=== PATIENT | male | born 2000 | race Caucasian/White ===

== ENCOUNTER 2018-01-17 15:54 | Emergency (ER) | payer OTHER ==
[~2018-01-17] VITALS: Ht 172.7 cm; Wt 79.4 kg
[~2018-01-17 15:54] MED LIST: ACETAMINOPHEN-1 EAC1 PO; APAP/CODEINE ELI5 M1 PO; CIPRO500 MG PO; IBUPROFEN 800800 M1 PO; MEDROLDOSEPACK PO; NAPROSYN500 MG PO; NOHOMEMEDICATIONS; PROAIR HFA8.5 GM INH; ROBAXIN 750 MG750 M1 PO; XANAX 0.5 MG0.5 MG PO; ZOFRAN ODT4 MG PO; ZPAK PO
[2018-01-17] MEDS ORDERED: VIRTUSSIN AC L118 ML PO (16:08)
[2018-01-17] MEDS ORDERED: ZPAK PO (16:08)
[2018-01-17] MEDS ORDERED: PREDNISONE 5 MG5 MG PO (16:08)
[2018-01-17 16:14] VITALS: BP 129/90
== END 2018-01-17 16:15 | disposition home or self-care (01) ==
LOC: M.ERS 15:54
DX: J02.9 Acute pharyngitis, unspecified (principal)

== ENCOUNTER 2018-04-20 00:24 | Emergency (ER) | payer OTHER ==
[~2018-04-20] VITALS: Ht 177.8 cm; Wt 79.4 kg
[~2018-04-20 00:24] MED LIST changes: +PREDNISONE 5 MG5 MG PO; +VIRTUSSIN AC L118 ML PO
[2018-04-20] MEDS ORDERED: VISTARIL 25 MG25 M1 PO (00:32)
[2018-04-20] MEDS ORDERED: PROZAC10 MG PO (00:34)
[2018-04-20 01:01] LABS: ABSOLUTE BASOPHILS 0.1 thou/uL (0.0-0.2); ABSOLUTE LYMPHOCYTES 2.9 thou/uL (0.8-5.3); ABSOLUTE MONOCYTES 0.5 thou/uL (0.0-1.2); ABSOLUTE NEUTROPHILS 7.1 thou/uL (1.6-8.1); BASOPHILS 0.6 %; EOSINOPHILS 0.2 %; HEMATOCRIT 41.9 % (42.0-52.0); HEMOGLOBIN 14.8 gm/dL (14.0-18.0); LYMPHOCYTES 27.2 %; MCH 30.1 pg (26.0-34.0); MCHC 35.3 g/dL (28.0-37.0); MCV 85.3 fL (80.0-100.0); MONOCYTES 4.7 %; MPV 9.2 fl. (7.2-11.1); NUCLEATED RBCS 0 /100WBC; PLATELET COUNT* 218 thou/uL (150-400); POLYS 67.3 %; RBC 4.91 mil/uL (4.50-6.00); RDW-CV 13.4 % (10.5-14.5); WBC 10.6 thou/uL (4.0-11.0)
[2018-04-20 01:05] LABS: CALCIUM 9.3 mg/dL (8.5-10.1); CREATININE 0.9 mg/dL (0.6-1.3); POTASSIUM 3.4 mmol/L (3.5-5.1)
[2018-04-20] MEDS ORDERED: AMOXICILLIN875 MG PO (02:55)
[2018-04-20] MEDS ORDERED: ZPAK PO (03:26)
[2018-04-20 03:36] VITALS: BP 111/66
== END 2018-04-20 03:42 | disposition home or self-care (01) ==
LOC: M.ERS 00:24
PROVIDERS: Personal Emergency Response Attendant
DX: J03.90 Acute tonsillitis, unspecified (principal); F41.9 Anxiety disorder, unspecified

== ENCOUNTER 2018-05-09 17:03 | Emergency (ER) | payer OTHER ==
[~2018-05-09] VITALS: Ht 172.7 cm; Wt 77.1 kg
[~2018-05-09 17:03] MED LIST changes: +AMOXICILLIN875 MG PO; +PROZAC10 MG PO; +VISTARIL 25 MG25 M1 PO
[2018-05-09] MEDS ORDERED: CLONAZEPAM 1 MG1 M1 PO (17:14)
[2018-05-09] MEDS ORDERED: VENTOLIN HFA 1818 GM INH (17:47)
[2018-05-09 17:53] VITALS: BP 136/73
--- NOTE | 2018-05-10 11:01 | EKG ---
[place] [address] ELECTROCARDIOGRAM REPORT Name: SANA MAY [id number] Admission: 05/09/18 Attend Phys: Discharge: 05/09/18 Date of : [birth year] Report #: [id number] THIS REPORT FOR: //name// [facility] ED Test Date: 2018-05-09 Test Time: 17:07:31 Pat Name: SANA MAY Department: Room: Gender: M Olive Pitter: KAVYA : 2000 Requested By: Jose Maria Dorsey Order Number: [id number] MD: Keaton Michaels Measurements Intervals [place] Rate: 55 P: 24 FL: 160 QRS: 45 QRSD: 101 T: 33 QT: 394 QTc: 377 Interpretive Statements Sinus rhythm ST elev, probable normal early repol pattern Compared to ECG 09/23/2016 21:50:14 ST (T wave) deviation now present Electronically Signed On 05-10-2018 11:00:53 CDT by Keaton Michaels [email or web address] <ELECTRONICALLY SIGNED> By: Gayathri Michaels MD, [facility] 05/10/18 1100 1707 1707 Gayathri Michaels MD, [facility] /EPI
== END 2018-05-09 17:53 | disposition home or self-care (01) ==
LOC: M.ERS 17:03
DX: J40 Bronchitis, not specified as acute or chronic (principal); M94.0 Chondrocostal junction syndrome [Tietze]

== ENCOUNTER 2019-01-21 16:38 | Emergency (ER) | payer OTHER ==
[~2019-01-21] VITALS: Ht 177.8 cm; Wt 79.4 kg
[~2019-01-21 16:38] MED LIST changes: +CLONAZEPAM 1 MG1 M1 PO; +VENTOLIN HFA 1818 GM INH
[2019-01-21] MEDS ORDERED: CLONAZEPAM 0.50.5 M1 PO (16:48)
[2019-01-21 17:16] LABS: ABSOLUTE BASOPHILS 0.1 thou/uL (0.0-0.2); ABSOLUTE LYMPHOCYTES 2.8 thou/uL (0.8-5.3); ABSOLUTE MONOCYTES 0.3 thou/uL (0.0-1.2); ABSOLUTE NEUTROPHILS 4.7 thou/uL (1.6-8.1); BASOPHILS 1.2 %; EOSINOPHILS 0.4 %; HEMATOCRIT 41.6 % (42.0-52.0); HEMOGLOBIN 14.4 gm/dL (14.0-18.0); LYMPHOCYTES 35.3 %; MCH 29.7 pg (26.0-34.0); MCHC 34.6 g/dL (28.0-37.0); MCV 85.8 fL (80.0-100.0); MONOCYTES 3.5 %; MPV 8.6 fl. (7.2-11.1); NUCLEATED RBCS 0 /100WBC; PLATELET COUNT* 222 thou/uL (150-400); POLYS 59.6 %; RBC 4.85 mil/uL (4.50-6.00); RDW-CV 13.2 % (10.5-14.5); WBC 7.9 thou/uL (4.0-11.0)
[2019-01-21 17:27] LABS: ANION GAP 8 mmol/L (7-16); BUN 22 mg/dL (7-18); CALCIUM 9.3 mg/dL (8.5-10.1); CHLORIDE 105 mmol/L (98-107); CO2 28 mmol/L (21-32); GLUCOSE 107 mg/dL (70-99); POTASSIUM 3.5 mmol/L (3.5-5.1); SODIUM 141 mmol/L (136-145)
[2019-01-21 17:40] LABS: ALBUMIN 4.2 g/dL (3.4-5.0); ALKALINE PHOSPHATASE 78 U/L (46-116); CK-MB MASS 0.5 ng/mL (<0.5-3.6); SGOT 14 U/L (15-37); SGPT 21 U/L (30-65); TOTAL BILIRUBIN 0.4 mg/dL (<0.1-1.0); TOTAL PROTEIN 7.5 g/dL (6.4-8.2); TROPONIN-I LEVEL <0.06 ng/mL (<0.06)
[2019-01-21 17:52] LABS: APTT 31.1 Seconds (25.0-31.3); INR 1.1; PROTIME 11.3 Seconds (9.20-11.50)
[2019-01-21] MEDS ORDERED: FLEXERIL PO (18:49)
[2019-01-21 19:12] VITALS: BP 118/72
--- NOTE | 2019-01-22 11:12 | EKG ---
[place] [address] ELECTROCARDIOGRAM REPORT Name: SANA MAY [id number] Admission: 01/21/19 Attend Phys: Discharge: 01/21/19 Date of : [birth year] Report #: [id number] THIS REPORT FOR: //name// [facility] ED Test Date: 2019-01-21 Test Time: 18:07:54 Pat Name: SANA MAY Department: Room: Gender: M Marketing Development Representative: : 2000 Requested By: Alcon Garza Order Number: [id number] MD: Lupillo Johnson Measurements Intervals [place] Rate: 70 P: 11 UT: 189 QRS: 32 QRSD: 93 T: 32 QT: 375 QTc: 405 Interpretive Statements Sinus rhythm Atrial premature complex Compared to ECG 05/09/2018 17:07:31 Atrial premature complex(es) now present Electronically Signed On 01-22-2019 11:11:57 CDT by Lupillo Johnson [email or web address] <ELECTRONICALLY SIGNED> By: Lupillo Johnson MD, [facility] 01/22/19 1111 180 06 Lupillo Johnson MD, [facility] /EPI
== END 2019-01-21 19:12 | disposition home or self-care (01) ==
LOC: M.ERS 16:38
PROVIDERS: Nurse Practitioner Psychiatric/Mental Health
DX: M54.12 Radiculopathy, cervical region (principal); F41.9 Anxiety disorder, unspecified; R07.89 Other chest pain; X50.1XXA Overexertion from prolonged static or awkward postures, initial encounter; Y92.89 Other specified places as the place of occurrence of the external cause; Y93.89 Activity, other specified; Y99.8 Other external cause status

== ENCOUNTER 2019-02-07 18:51 | Emergency (ER) | payer OTHER ==
[~2019-02-07] VITALS: Ht 177.8 cm; Wt 79.4 kg
[~2019-02-07 18:51] MED LIST changes: +CLONAZEPAM 0.50.5 M1 PO; +FLEXERIL PO
[2019-02-07 19:34] LABS: URINE BILIRUBIN NEGATIVE (Negative); URINE BLOOD NEGATIVE (Negative); URINE CLARITY CLEAR; URINE COLOR YELLOW; URINE GLUCOSE-RANDOM NEGATIVE (Negative); URINE KETONES NEGATIVE (Negative); URINE LEUKOCYTES-REFLEX NEGATIVE (Negative); URINE NITRITE-REFLEX NEGATIVE (Negative); URINE PROTEIN NEGATIVE (Negative); URINE SPECIFIC GRAVITY 1.015 (1.005-1.030); URINE UROBILINOGEN 0.2 E.U./dl (0.2-1.0)
[2019-02-07 19:46] LABS: ABSOLUTE BASOPHILS 0.1 thou/uL (0.0-0.2); ABSOLUTE LYMPHOCYTES 2.2 thou/uL (0.8-5.3); ABSOLUTE MONOCYTES 0.4 thou/uL (0.0-1.2); ABSOLUTE NEUTROPHILS 4.4 thou/uL (1.6-8.1); BASOPHILS 0.7 %; EOSINOPHILS 0.6 %; HEMATOCRIT 39.7 % (42.0-52.0); HEMOGLOBIN 13.8 gm/dL (14.0-18.0); LYMPHOCYTES 30.9 %; MCH 29.8 pg (26.0-34.0); MCHC 34.9 g/dL (28.0-37.0); MCV 85.5 fL (80.0-100.0); MONOCYTES 6.3 %; MPV 8.4 fl. (7.2-11.1); NUCLEATED RBCS 0 /100WBC; PLATELET COUNT* 197 thou/uL (150-400); POLYS 61.5 %; RBC 4.64 mil/uL (4.50-6.00); RDW-CV 12.9 % (10.5-14.5); WBC 7.1 thou/uL (4.0-11.0)
[2019-02-07 20:09] LABS: ALBUMIN 4.1 g/dL (3.4-5.0); CALCIUM 8.9 mg/dL (8.5-10.1); CREATININE 0.8 mg/dL (0.6-1.3); POTASSIUM 3.4 mmol/L (3.5-5.1); TOTAL BILIRUBIN 0.5 mg/dL (<0.1-1.0); TOTAL PROTEIN 7.2 g/dL (6.4-8.2)
[2019-02-07] MEDS ORDERED: AMOXICILLIN 50500 MG PO (20:56)
[2019-02-07] MEDS ORDERED: ZPAK PO (21:09)
[2019-02-07 21:19] VITALS: BP 114/69
== END 2019-02-07 21:21 | disposition home or self-care (01) ==
LOC: M.ERS 18:51
PROVIDERS: Nurse Practitioner Family
DX: J06.9 Acute upper respiratory infection, unspecified (principal); R10.9 Unspecified abdominal pain; F84.0 Autistic disorder